=== PATIENT | male | born 1965 | race American Indian/Alaskan Native ===

== ENCOUNTER 2019-09-18 15:47 | Emergency (ER) | payer SELFPAY ==
--- NOTE | 2019-09-18 16:43 | Event Note ---
ED Screening Note ED Screening Note: left sided chest that began for 4 days states it hurts with palpation worse with movement no heavy lifting no n/v/d no fever no recent illness no SOB PMHx HTN, DM, HLD no allergies to meds states he last had a stress test approximately 7 years +marijuana This initial assessment/diagnostic orders/clinical plan/treatment(s) is/are subject to change based on patients health status, clinical progression and re- assessment by fellow clinical providers in the ED. Further treatment and workup at subsequent clinical providers discretion. Patient/guardian urged not to elope from the ED as their condition may be serious if not clinically assessed and managed. Initial orders include: CP protocol
[2019-09-18] MEDS ORDERED: ASPIRIN 325 MG TAB PO ONE (16:47)
[2019-09-18] MEDS ORDERED: ASPIRIN 325 MG TAB ONE (16:49)
--- NOTE | 2019-09-18 17:15 | XRay Report ---
CHEST 2 VIEWS INDICATION / CLINICAL INFORMATION: CP. COMPARISON: None available. FINDINGS: SUPPORT DEVICES: None. HEART / MEDIASTINUM: No significant abnormality. LUNGS / PLEURA: No significant pulmonary or pleural abnormality. No pneumothorax. ADDITIONAL FINDINGS: No significant additional findings. IMPRESSION: 1. No acute findings. Signer Name: Markie Sosa MD Signed: 09/18/2019 5:10 PM Workstation Name: [id number]
[2019-09-18 17:47] LABS: Basophils % (Auto) 0.7 % (0.0-1.8); Eosinophils # (Auto) 0.3 K/mm3 (0.0-0.4); Eosinophils % (Auto) 3.7 % (0.0-4.3); Hematocrit 42.2 % (35.5-45.6); Hemoglobin 14.2 gm/dl (11.8-15.2); Lymphocytes # (Auto) 2.7 K/mm3 (1.2-5.4); Mean Corpuscular HGB Conc 34 % (32-34); Mean Corpuscular Volume 86 fl (84-94); Monocytes # (Auto) 0.6 K/mm3 (0.0-0.8); Monocytes % (Auto) 8.6 % (0.0-7.3); Platelet Count 236 K/mm3 (140-440); Red Blood Count 4.91 M/mm3 (3.65-5.03); Red Cell Distribution Width 13.8 % (13.2-15.2)
[2019-09-18 18:10] LABS: Alanine Aminotransferase 19 units/L (7-56); Albumin 4.6 g/dL (3.9-5); BUN/Creatinine Ratio 14; Blood Urea Nitrogen 13 mg/dL (9-20); Calcium 9.5 mg/dL (8.4-10.2); Hemolysis Index 17
[2019-09-18 19:31] VITALS: BP 168/108
[2019-09-18] MEDS ORDERED: dexAMETHasone 20 MG/5 ML VIAL IM ONE (20:01)
[2019-09-18] MEDS ORDERED: KETOROLAC 30 MG/1 ML INJ IM ONE (20:01)
--- NOTE | 2019-09-18 20:54 | Emergency Department Report ---
ED Chest Pain HPI - General Chief Complaint: Chest Pain Stated Complaint: CHEST PAIN Time Seen by Provider: 09/18/19 16:41 Source: patient Mode of arrival: Ambulatory Limitations: No Limitations - History of Present Illness Initial Comments: Patient is a 53-year-old -[place] male with a history of hypertension and [id number] diabetes who presents to the ED with acute onset persistent left-sided chest wall pain that radiates to the left posterior upper thoracic area, left shoulder and left lateral sternocleidomastoid area for the l ast 2 days. Patient states that he initially thought that he may have slept on his left side and had expected that the pain would resolve. Patient states that the pain has been persistent, sharp and reproducible by palpation or movement. Patient denies heavy lifting, shortness of breath, diaphoresis, neck pain, jaw pain, dizziness, headache, fever, chills, cough, syncope, palpitations, numbness and tingling or weakness of left arm, abdominal pain or change in vision MD Complaint: chest pain, other (left sided chest wall pain; left shoulder and posterior left shoulder pain) -: Sudden, days(s) (2) Onset: awoke with symptoms Pain Location: left chest, other (left shoulder; posterior left shoulder) Pain Radiation: LUE (left shoulder), back (posterior left upper back) Severity: severe Severity scale (0 -10): 9 Quality: aching, sharp Consistency: constant Improves With: nothing Worsens With: palpation, movement re: denies: nausea, vomting, diaphoresis, dyspnea, sense of impending doom Other Symptoms: denies: cough, fever, syncope, rash, acid taste in mouth, leg swelling, palpitations, burping, other Treatments Prior to Arrival: none Aspirin use within the Past 7 Days: (0) No - Related Data On Oral Contraceptives: No Previous Rx's Medication Instructions Recorded Last Taken Type Gabapentin 300 mg PO Q12H PRN #30 cap 09/18/19 Unknown Rx Naproxen 500 mg PO Q12H PRN #30 tablet 09/18/19 Unknown Rx predniSONE [Deltasone] 60 mg PO QDAY #15 tab 09/18/19 Unknown Rx tiZANidine [Zanaflex 4mg TAB] 4 mg PO Q8H PRN #21 tablet 09/18/19 Unknown Rx Allergies Allergy/AdvReac Type Severity Reaction Status Date / Time No Known Allergies Allergy Unverified 09/18/19 17:03 Heart Score - HEART Score History: Slightly suspicious EKG: Normal Age: 45-65 Risk factors: 1-2 risk factors Troponin: < normal limit HEART Score: 2 - Critical Actions Critical Actions: 0-3 pts:0.9-1.7%risk of adverse cardiac event.Candidate for discharge ED Review of Systems ROS: Stated complaint: CHEST PAIN Other details as noted in HPI Constitutional: denies: chills, fever Eyes: denies: eye pain, eye discharge, vision change ENT: denies: ear pain, throat pain Respiratory: denies: cough, shortness of breath, wheezing Cardiovascular: chest pain (left-sided). denies: palpitations Endocrine: no symptoms reported Gastrointestinal: denies: abdominal pain, nausea, diarrhea Genitourinary: denies: urgency, dysuria Musculoskeletal: back pain (left-sided posterior upper thoracic pain), arthralgia (posterior and anterior left shoulder pain). denies: joint swelling Skin: denies: rash, lesions Neurological: denies: headache, weakness, paresthesias Psychiatric: denies: anxiety, depression Hematological/Lymphatic: denies: easy bleeding, easy bruising ED Past Medical Hx - Past Medical History Previous Medical History?: Yes Hx Hypertension: Yes - Surgical History Past Surgical History?: No - Social History Smoking Status: Never Smoker Substance Use Type: None - Medications Home Medications: Home Medications Medication Instructions Recorded Confirmed Last Taken Type Gabapentin 300 mg PO Q12H PRN #30 cap 09/18/19 Unknown Rx Naproxen 500 mg PO Q12H PRN #30 tablet 09/18/19 Unknown Rx predniSONE [Deltasone] 60 mg PO QDAY #15 tab 09/18/19 Unknown Rx tiZANidine [Zanaflex 4mg TAB] 4 mg PO Q8H PRN #21 tablet 09/18/19 Unknown Rx ED Physical Exam - General Limitations: No Limitations General appearance: alert, in no apparent distress - Head Head exam: Present: atraumatic, normocephalic, normal inspection - Eye Eye exam: Present: normal appearance, PERRL, EOMI Pupils: Present: normal accommodation - ENT ENT exam: Present: normal exam, normal orophraynx, mucous membranes moist, TM's normal bilaterally, normal external ear exam - Neck Neck exam: Present: normal inspection, tenderness (Palpable), full ROM - Respiratory Respiratory exam: Present: normal lung sounds bilaterally, chest wall tenderness (Reproducible left-sided chest wall tenderness). Absent: respiratory distress, wheezes, rales, rhonchi, decreased breath sounds - Cardiovascular Cardiovascular Exam: Present: regular rate, normal rhythm, normal heart sounds. Absent: systolic murmur, diastolic murmur, rubs, gallop - GI/Abdominal GI/Abdominal exam: Present: soft, normal bowel sounds. Absent: tenderness, gu arding, rebound, hyperactive bowel sounds - Extremities Exam Extremities exam: Present: normal inspection, full ROM, tenderness (Palpable reproducible severe left shoulder and posterior left upper thoracic tenderness), normal capillary refill - Back Exam Back exam: Present: normal inspection, full ROM, tenderness (Palpable severe reproducible left posterior thoracic musculoskeletal tenderness), muscle spasm, paraspinal tenderness. Absent: CVA tenderness (L), vertebral tenderness - Neurological Exam Neurological exam: Present: alert, oriented X3, CN II-XII intact, normal gait, reflexes normal - Psychiatric Psychiatric exam: Present: normal affect, normal mood - Skin Skin exam: Present: warm, dry, intact, normal color. Absent: rash ED Course Vital Signs 09/18/19 09/18/19 09/18/19 15:54 16:51 19:30 Temperature 98.9 F 98.0 F Pulse Rate 95 H 84 Respiratory 14 18 Rate Blood Pressure 152/101 Blood Pressure 174/97 168/108 [Left] O2 Sat by Pulse 100 99 Oximetry 09/18/19 20:07 Temperature Pulse Rate Respiratory 18 Rate Blood Pressure Blood Pressure [Left] O2 Sat by Pulse Oximetry LEOLA score - Leola Score Age > 65: (0) No Aspirin use within the Past 7 Days: (0) No 3 or more CAD Risk Factors: (0) No 2 or more Angina events in past 24 hrs: (0) No Known CAD with more than 50% Stenosis: (0) No Elevated Cardiac Markers: (0) No ST Deviation Greater than 0.5mm: (0) No LEOLA Score: 0 ED Medical Decision Making - Lab Data Result diagrams: 09/18/19 17:06 09/18/19 17:06 - EKG Data EKG shows normal: sinus rhythm Rate: normal - EKG Data Interpretation: normal EKG 09/18/19 21:00 The EKG shows normal sinus rhythm with a ventricular rate of 87 bpm, and no ST or T wave abnormalities - Radiology Data Radiology results: report reviewed Chest x-ray shows no acute cardiopulmonary abnormalities or pneumonitis, pleural effusion or pneumothorax. - Medical Decision Making This is a 53-year-old -[place] male with a history of hypertension and borderline diabetes who presents to the ED with complaint of acute onset persistent nontraumatic reproducible left sided chest wall pain that radiates to the left shoulder and left posterior thoracic area for the last 2 days. Patient states that the pain has been constant and reproducible by palpation or any movement. In the ED, patient is alert and oriented x3 and is not in any distress. Patient is however hypertensive in triage. Chest x-ray shows no acute cardiopulmonary abnormalities or pneumonitis, pneumothorax or pleural effusion. Initial EKG shows normal sinus rhythm with a ventricular rate of 87 bpm, and no ST or T wave abnormalities. Lab test results were all reviewed and are all nonactionable including initial and repeat troponin levels. Patient was treated for pain in the ED and on reevaluation, patient's pain is well controlled with medications. Although the patient's heart score is 2, the patient symptoms are reproducible by palpation on physical exam and all lab test results in as well as imaging and EKG are nonactionable. Patient symptoms are likely due to cervical radiculopathy given the fact that the pain is reproducible in the areas innervated by the branches of brachial plexus nerve trunk mainly in the mid and upper posterior thoracic areas, left shoulder, left lateral chest wall and left sternocleidomastoid muscle. Patient was discharged home on anti-inflammatory pain medications and was advised to follow-up with his primary care physician in 5 to 7 days for reevaluation. Patient was however advised to return to the ED immediately if symptoms get worse. - Differential Diagnosis CAD; Muscle strain; Cervical radiculopathy Critical care attestation.: If time is entered above; I have spent that time in minutes in the direct care of this critically ill patient, excluding procedure time. ED Disposition Clinical Impression: Left cervical radiculopathy, Left-sided chest wall pain, Acute costochondritis Strain of sternocleidomastoid muscle Qualifiers: Encounter type: initial encounter Qualified Code(s): S16.1XXA - Strain of muscle, fascia and tendon at neck level, initial encounter Disposition: DC-01 TO HOME OR SELFCARE Is pt being admited?: No Does the pt Need Aspirin: No Condition: Stable Instructions: Chest Pain (ED), Muscle Strain (ED), Costochondritis (ED), Cervical Radiculopathy (ED) Additional Instructions: All your test results are unremarkable. Your symptoms are likely due to muscle strain or cervical radiculopathy of the left lateral neck. Therefore take pain medications as needed and as advised with food, drink plenty of fluids and follow-up with your primary care physician in 5 to 7 days for reevaluation. Return to the ED immediately if symptoms get worse. Prescriptions: predniSONE [Deltasone] 60 mg PO QDAY #15 tab Gabapentin 300 mg PO Q12H PRN #30 cap PRN Reason: Pain , Severe (7-10) Naproxen 500 mg PO Q12H PRN #30 tablet PRN Reason: Pain , Severe (7-10) tiZANidine [Zanaflex 4mg TAB] 4 mg PO Q8H PRN #21 tablet PRN Reason: Muscle Spasm Referrals: CORTNEY HERNANDEZ MD [Staff Physician] - 3-5 Days Time of Disposition: 21:08 Print Language: POLISH
== END 2019-09-18 21:24 | disposition home or self-care (01) ==
LOC: ED 15:47
DX: S16.1XXA Strain of muscle, fascia and tendon at neck level, initial encounter (principal); M54.12 Radiculopathy, cervical region; M94.0 Chondrocostal junction syndrome [Tietze]; I10 Essential (primary) hypertension; Z79.899 Other long term (current) drug therapy; X58.XXXA Exposure to other specified factors, initial encounter; Y93.89 Activity, other specified; Y92.89 Other specified places as the place of occurrence of the external cause; Y99.8 Other external cause status
CPT/HCPCS: 36415; 71046; 80053; 83880; 84484; 85025; 93005; 93010; 96372; 99284; J1100; J1885